=== PATIENT | male | born 1950 | race Caucasian/White ===

== ENCOUNTER → 2019-03-20 12:47 | Outpatient (CLI) | payer MEDICARE, OTHER, SELFPAY ==
--- NOTE | 2019-03-20 | DI.MRI.S_ITS ---
PROCEDURE: MR LUMBAR SPINE WO CON INDICATIONS: Low back pain TECHNIQUE: Noncontrast sagittal T1 spin echo and T2 fast echo, sagittal STIR, axial T1 and T2 fast spin echo through the lumbar spine. In cases with scoliosis, additional coronal T2 fast spin echo may be performed. COMPARISON: [facility], CR, XR LUMBAR SPINE 2 OR 3 VIEWS, 03/05/2019, 9:36. [facility], MR, L-SPINE WITHOUT CONTRAST, 03/15/2014, 8:11. FINDINGS: Image quality: Excellent. Alignment and Curvature: There is trace retrolisthesis of L1 on L2, L2 and L3, L3 on L4, L4 on L5. Bone Marrow: Marrow is of normal overall signal. Mild reactive endplate changes are present at L3-4, minimal throughout the remainder of the lumbar spine. No acute vertebral body compression fractures. Spinal Cord: Conus medullaris terminates at the L1-L2 level. Visualized cord demonstrates normal signal and size. Paraspinous Soft Tissues: No paravertebral masses. Discs: Moderate to severe multilevel degenerative disc space narrowing is present most severe from L2-3 through L4-5. L1-L2: Mild disc bulge with minimal to mild spinal stenosis. Minimal left foraminal narrowing with facet and ligamentum flavum hypertrophy. Minimal interval progression. L2-L3: Mild disc bulge with mild to moderate spinal stenosis, slightly progressive. There is interval appearance of a left-sided posterior paracentral protrusion. It is best seen on sagittal images. It is located along the caudal aspect of the disc space projecting approximately 12 mm. There is compromise of the exiting nerve roots. There is moderate bilateral foraminal narrowing slightly progressive on the left compared to prior exam. Facet and ligamentum flavum hypertrophy are present. Minimal epidural lipomatosis. L3-L4: Mild disc bulge with moderate spinal stenosis, slightly progressive compared to prior exam. Epidural lipomatosis is present. Moderate bilateral foraminal narrowing is present, progressive compared to prior exam. Superimposed protrusion/extrusion is noted in the right posterior paracentral location. It is noted previous extrusion was also identified at this level although is more caudal location. L4-L5: Mild disc bulge with moderate spinal stenosis and epidural lipomatosis. Mild to moderate left and severe right foraminal narrowing with facet hypertrophy. Minimal interval progression. L5-S1: Mild disc bulge without spinal stenosis. No foraminal narrowing. Mild facet hypertrophy. IMPRESSION: 1. Multilevel degenerative changes degenerative interval progression as noted above. 2. Interval development of areas of protrusion/extrusion notable at L2-3 and L3-4 as detailed above. Dictated by: Katrina Braun M.D. on 03/20/2019 at 15:32 Approved by: Katrina Braun M.D. on 03/20/2019 at 16:00
== END ==
PROVIDERS: Family Provider Internal Medicine; PCP Internal Medicine; Visit Provider Physical Medicine & Rehabilitation Pain Medicine
DX: M47.816 Spondylosis without myelopathy or radiculopathy, lumbar region (principal); M47.817 Spondylosis without myelopathy or radiculopathy, lumbosacral region; M51.26 Other intervertebral disc displacement, lumbar region
CPT/HCPCS: 72148

== ENCOUNTER 2019-07-04 06:00 | Day surgery (SDC) | payer MEDICARE, OTHER, SELFPAY ==
[2019-06-15 08:44] VITALS: BMI 30.4
[2019-07-04] VITALS (17 sets, daily range): BP systolic 131–169; BP diastolic 70–94; PULSE 81–103; RESP 9–16; TEMP 36.6–37.6; O2SAT 91–97; BMI 32.1
--- NOTE | 2019-07-04 | DI.RAD.S_ITS ---
PROCEDURE: XR LUMBAR SPINE 2-3V INDICATIONS: L2-4 TLIF TECHNIQUE: 2 views of the lumbar spine were acquired. COMPARISON: None. FINDINGS: Bones: 5 [id number] vertebrae are present. There is normal bony alignment established after placement of transverse pedicle screws and vertical fixation rods bilaterally from L2-L4, with interbody disc cage prosthesis devices at the L2-3 and L3-4. No vertebral body compression fractures. No suspicious bony lesions. Soft tissues: Overlying bowel gas pattern is normal. No suspicious soft tissue calcifications. IMPRESSION: Normal alignment established by posterior fusion procedure with interbody disc cage prosthesis devices at the 2 intervening levels, from L2-L4. Dictated by: Isidro Enamorado M.D. on 07/04/2019 at 12:14 Approved by: Isidro Enamorado M.D. on 07/04/2019 at 12:30
[2019-07-04] MEDS: ACETAMINOPHEN 325 MG TABLET 975 MG PO (07:41)
[2019-07-04] MEDS: CELECOXIB 200 MG CAPSULE 400 MG PO (07:41)
[2019-07-04] MEDS: LACTATED RINGERS 1,000 ML 42 ML IV ×2 (07:41→09:29)
[2019-07-04] MEDS: GABAPENTIN 300 MG CAPSULE PO (07:42)
--- NOTE | 2019-07-04 07:43 | PM.PREOP ---
Pre-operative Note Interval Note History & Physical reviewed/Exam performed by Physician: Yes Changes to H&P: No
[2019-07-04] MEDS: CEFAZOLIN 2 GM/100 ML FROZ.PIGGY IV ×3 (07:46→23:38)
--- NOTE | 2019-07-04 08:23 | SUR.OPER ---
Prone on spine table, head in foam head support, padded chest and pelvic supports, gel pad at knees, lower legs supported by pillows; nipples, genitalia and toes free of pressure, arms secured on foam padded arm boards at <90 degrees abduction. Tape over blanket at thigh secured to table.
[2019-07-04] MEDS: BUPIVACAINE 0.25% W/ EPI 30 ML VIAL INJ (08:46)
[2019-07-04] MEDS: BUPIVACAINE LIPOSOME 266 MG/20 ML VIAL INJ (08:46)
--- NOTE | 2019-07-04 09:18 | CM.IDA ---
Discharge Planning/Care Management CM Discharge Assessment Start: 07/04/19 09:13 Freq: Status: Active Protocol: Document 07/04/19 09:14 MARTÍN (Rec: 07/04/19 09:18 MARTÍN [id number]) Discharge Planning Assessment Assigned Formation Testing Operator VARINDER Miramontes DPOA/Assigned Designee Name Elen Bautista, spouse Contact Information [phone], Advance Directives? Yes Advance Directives on File No History Provided By Patient,Significant Other, Medical Record Prior Living Arrangements House Household Members spouse Type of transporation used prior to Drives own vehicle admit Independent with ADL's Yes Is patient alert and oriented? Yes Comment Pt is off the floor for spinal surgery today w/ Dr Henriquez PCP: Deana Alfonso Payer: [facility]/ [facility] Pt will require further assessment of DC needs once back from his surgery and evaluated by PT for dispo recommendations. Pt plans to return home w/spouse to assist . Following closely for DC assessment and needs. VARINDER Burns Discharge Plan Home Transportation Arrangement Family Additional Comment Pending progress w/therapy team Review Status In Process
--- NOTE | 2019-07-04 11:38 | PM.OP.1 ---
Operative Date/Time/Diagnoses Date of procedure: 07/04/19 Time of procedure: 08:10 Pre-op diagnosis: 1. L2-3, L3-4 spondylolisthesis 2. L2-3, L3-4, L4-5 spinal stenosis 3. L2-3, L3-4, L4-5 spondylosis with radiculopathy Post-op diagnosis: same Procedure & Clinicians Procedure: 1. L2-3, L3-4 Postero-lateral and posterior interbody fusion 2. L2-3, L3-4 interbody cage placement. 3. L2-3, L3-4 decompressive laminectomy with bilateral facetecomies 4. L2-3, L3-4 Posterior segmental instrumentation 5. L4-5 hemilaminectomy 6. [place] of bone marrow from iliac crest 7. Utilization of microsurgical technique and operating microscope Same procedure as scheduled: Yes Indications: Patient has been having chronic back pain and worsening lumbar radiculopathy. Patient failed multiple conservative management with worsening pain weakness and numbness in her lower extremity. Patient has been having difficulty performing activity of daily living. After discussing risks benefits of treatment options, patient elected proceed with surgery. Surgeon: Hardik Henriquez Electronic Organ Mechanic: Campbell Montague Click Yes if Unassisted: No Anesthesia Type: General Operative Notes Closure Type: primary Specimen(s): none sent Prosthetic devices, grafts, tissues, transplants, or devices: Globus revolve, Rise cages Applied: catheter Estimated Blood Loss (mL): 100 Blood products transfused: none Procedure in detail: Patient was seen in the preoperative area. Risks and benefits of the surgery was discussed with the patient. Informed consent was obtained from the patient and placed in the chart. Surgical site was marked. Patient was taken to the operative room. General anesthesia was administered. Prophylactic antibiotic was given to the patient less than 30 min before the incision was made. Patient was placed into a prone position on the Ramo table. Patient's back was then prepped and draped in the sterile fashion. Time-out was performed at this time. Using AP and lateral C-arm imaging the interval between L2-3, L3-4 was identified and marked on patient's back. A 2 inch incision 2 in from midline was made on the left side first. The fascia was incised in line with skin incision. Globus MARS retractors was placed inside the incision and docked onto the L2 and L3 lamina. Using microsurgical technique and operating microscope, a L2 and L3 laminectomy and L2-3, L3-4 facetectomy was performed using a Kerrison rongeur. Patient was found have severe central and neural foramen stenosis due to spondylosis and disc herniation. The stenosis was fully decompressed after the laminectomy and diskectomy and facetectomy was completed. The disc space at L2-3, L3-4 was identified. And a total diskectomy was performed at L2-3, L3-4 level. The endplates were decorticated using a rasp and shaver. The total diskectomy and decortication was performed at L2-3, L3-4 level in order to to accomplish a L2-3, L3-4 fusion. The local bone from the laminectomy and facetectomy was saved for local bone grafting. After the total diskectomy and decortication was completed, Bio4 bone graft material was combined with local bone that was harvested earlier. At this time, a separate skin is incision was made over the iliac crest. A Jamshidi needle was inserted into the iliac crest through a separate skin incision. 5 cc of bone marrow aspiration was obtained through the separate skin incision using a Jamshidi needle from the iliac crest. The bone marrow aspiration was combined with local bone and the Bio4 bone grafting material. The bone grafting material was placed into the L2-3, L3-4 interbody space along with two cages, one expandable cage at each level. The cages were expanded to their maximum height using the torque limiting screwdriver. The mars retractor was then redirected over the L4 lamina. An L4-5 hemilaminectomy was performed using a Kerrison rongeur to decompress the central canal in the lateral recess. Appropriate decompression was accomplished. At this time a mirror image incision was made on the right side. The fascia was incised in line with the skin incision. Globus MARS retractor was inserted and docked onto the L2-3, L3-4 posterolateral gutter. Using the power drill, posterior-lateral decortication was performed at L2-3, L3-4 level until bleeding cortical bone was identified. The remaining bone grafting material was placed into the L2-3, L3-4 posterior lateral gutter he order to accomplish posterolateral fusion at the L2-3, L3-4 levels. Using the double C-arm technique, pedicle screws were placed into the L2, L3, L4 pedicles bilaterally. This was done by placing the Jamshidi needle into the pedicles, then placing the guidewires over the Jamshidi needle, and finally placing the cannulated screws over the guidewires bilaterally. After the pedicle screws were placed, 2 titanium rods was locked into the heads of the pedicle screws using locking caps and torque limiting screwdriver. Total 6 pedicles screws were placed. After all the hardware was placed, and confirmed with AP and lateral C-arm imaging, the wound was then irrigated with sterile normal saline and packed with Ray-Cristy gauze for 3 min to accomplish hemostasis. After the gauze was removed the deep fascia was closed with #1 Vicryl suture. The subcutaneous layer was closed with 2-0 Vicryl. The skin was closed with skin seymour. Patient tolerated the procedure well. There were no complications. Complications: none Post-operative Condition: stable Disposition: PACU Plan for aftercare: Admit to inpatient hospital
[2019-07-04] MEDS: HYDROMORPHONE 2 MG INJ IV ×8 (11:59→12:49)
--- NOTE | 2019-07-04 12:54 | SUR.PHASEI ---
Patient has been very, very restless. Took off gown, scd's, BP cuff, etc. unable to re-direct patient.
--- NOTE | 2019-07-04 13:00 | SUR.PHASEI ---
Patient states pain is tolerable. Sleeping on side.
[2019-07-04] MEDS: SODIUM CHLORIDE 0.9% 1,000 ML 100 ML IV (16:00)
[2019-07-04] MEDS: OXYCODONE IR 5 MG TABLET 10 MG PO ×3 (16:01→22:43)
--- NOTE | 2019-07-04 16:01 | PT.IIE ---
Current Diagnoses Spondylolisthesis, lumbar region (07/04/19) Other spondylosis with radiculopathy, lumbosacral region (07/04/19) Spinal stenosis, lumbar region without neurogenic claudication (07/04/19) Surgery Performed Operation Date: 07/04/19 07:45 Actual Procedures p L4-5 hemilaminectomy, L2-3, L3-4 TLIF w/ posterior instrumentation - Hardik Henriquez MD Surgical History (Last Updated 06/15/19 @ 09:12 by Sunni Lewis RN) No history of previous surgery (Acute) Medical History (Last Updated 06/15/19 @ 09:12 by Sunni Lewis RN) Enlarged prostate (Acute) Gout (Acute) HTN (hypertension) (Acute) Osteoarthritis (Acute) Pre-diabetes (Acute) Sciatica (Acute) Physical Therapy Inpatient Evaluation/Re-Eval M1 PT/OT-IP Prior Functional Status Start: 07/04/19 16:43 Freq: NEEDED Status: Active Protocol: Document 07/04/19 16:01 AB (Rec: 07/04/19 16:54 AB [id number]) Medical Review Prior Functional Status Medical History Reviewed Yes Communication able to make needs known Mobility and Gait pt stated that he is independent with all mobilities and ambulation without AD Social History Household Members spouse Living Arrangements House Number of Floors (Floors) One Floor Number of Stairs To Enter/Railing? 3 steps to enter with L rail ascending Home Environment Standard Height Toilet,Walk in Shower,Built-In Shower Seat Home Equipment Raised Toilet Seat Without Armrests,Hand Held Shower,Grab Bars In Shower Additional Social History Comment has an adjustable bed M2 PT-IP Current Condition Start: 07/04/19 16:43 Freq: NEEDED Status: Active Protocol: Document 07/04/19 16:01 AB (Rec: 07/04/19 16:54 AB [id number]) Physical Therapy Current Condition Current Condition Evaluation Date 07/04/19 Treatment Diagnosis s/p L2-4 posterior fusion/lami ; L4-5 hemilami; difficulty in walking Onset Date 07/04/2019 Precautions Lumbar Precautions Log Roll,No Twisting,Limit Bending,Lifting Restriction of 10 lbs,Gait Belt above Incisional Area M3 PT-IP Subjective Start: 07/04/19 16:43 Freq: NEEDED Status: Active Protocol: Document 07/04/19 16:01 AB (Rec: 07/04/19 16:54 AB [id number]) Subjective Physical Therapy Visit Type Type Initial Evaluation Visit Start Time 16:01 Visit Stop Time 16:36 Total Visit Minutes 35 Number of [employer] Visits 0 Physical Therapy Visit Comments Patient Comments pt agreeable to do PT Therapy Pain Assessment Pain When Pain Assessed At Rest Pain Present Pain Present Pain Reported Location Medial Back Intensity 5 Scale Used Numeric (1 - 10) Pain Management Techniques Re-positioning,Timing of Activity with Medications M4 PT-IP Mobility and Gait Start: 07/04/19 16:43 Freq: NEEDED Status: Active Protocol: Document 07/04/19 16:01 AB (Rec: 07/04/19 16:54 AB [id number]) PT-Bed Mobility Assessment Rolling Type of Rolling Log Rolling Level of Assist Standby Assistance Supine to Sit Supine to Sit Standby Assistance Sit to Supine Sit to Supine Standby Assistance PT-Transfer Assessment Sit to and From Stand Sit to and from Stand Contact Guard Assistance,1 Person Assistance,Use of Upper Extremities Equipment Transfer Assistive Device Gait Belt,Front Wheeled Walker Orthotic/Prosthetic Devices or Brace: No Transfers Transfer Destination Toilet Transfer Technique ambulated using FWW Transfer Ability Level of Assist Standby Assistance,Contact Guard Assistance,1 Person Assistance,Use of Upper Extremities Comments Mobility Comments completed bed mobility supine to sit log roll SBA. pt was able to sit on EOB SBA. Pt requested to use the toilet. completed sit to stand CGA and ambulated to the toilet using FWW CGA. pt was able to maintain standing SBA using FWW for support while toileting. pt ambulated to the chair using FWW SBA. able to put underwear on and completed sit to stand SBA to CGA and was able to manage underwear. pt ambulated in room. requested to just go back to bed afterwards. completed sit to supine SBA and cues. positioned pt on the bed. call light and table placed within reach. Gait Assessment Gait Gait Assistance Required: Standby Assistance,Contact Guard Assist Distance (Feet) 30 Able to Maintain Weight Bearing Status Yes During Gait Assistive Devices Assistive Device Gait Belt,Front Wheeled Walker Orthotic/Prosthetic Devices or Brace: No Gait Deviations General Gait Pattern Antalgic,Decreased Stride Length,Decreased Feet Clearance Factors Limiting Gait Function Factors Limiting Gait Function Decreased Strength,Limited Range of Motion,Pain,Poor Balance,Poor Safety Awareness PT-Balance Assessment Sitting Balance and Reactions Static Sitting Balance Ability Good Dynamic Sitting Balance Ability Good Standing Balance and Reactions Static Standing Balance Ability Fair Dynamic Standing Balance Ability Fair Device Used FWW M5 PT-IP Objective Assessments Start: 07/04/19 16:43 Freq: NEEDED Status: Active Protocol: Document 07/04/19 16:01 AB (Rec: 07/04/19 16:54 [id number]) Orientation Orientation/Cognition Level of Alertness Alert Orientation Name,Age,Birthday,Month,Date, Year,Day of Week,Place, Situation Language Function Ability No Deficits Noted Safety Awareness Understands Safety Issues Memory Description No Deficits Noted Gross Range of Motion Lower Extremity ROM Assessment Within Functional Limits Strength Lower Extremity Strength Assessment Within Functional Limits Coordination Assessment Gross Coordination Gross Coordination WNL Sensation Assessment Sensation Gross Sensation WNL Muscle Tone Muscle Tone WNL Yes M6 PT-IP Treatment Start: 07/04/19 16:43 Freq: NEEDED Status: Active Protocol: Document 07/04/19 16:01 AB (Rec: 07/04/19 16:54 [id number]) Physical Therapy Treatment Education Education Provided Precautions,Weight Bearing Status,Post-Op Packet,Safety M7 PT-IP Assessment and Plan Start: 07/04/19 16:43 Freq: NEEDED Status: Active Protocol: Document 07/04/19 16:01 AB (Rec: 07/04/19 16:54 [id number]) PT Summary Assessment and Plan Potential Rehabilitation Potential Good Status of Condition at Evaluation Stable Summary Impairments Pain,ROM,Strength,Balance, Coordination,Sensation,Tone, Cognition,Bed Mobility, Transfers,Gait,Activity Tolerance Assessment Summary pt requiring SBA to CGA with mobility and plans to go home with spouse to assist him. will conduct caregiver training when appropriate and also complete stair climbing training prior to d/c. Goals Bed Mobility Goal Independent Transfer Goal Independent,Front Wheeled Walker Gait Goal Independent,Front Wheel Walker Gait Distance FWW Other Goals up/down 3 steps L rail ascending SBA Days to Meet Goals 5 Frequency of Treatment Frequency Of Treatment Twice a Day Treatment Plan Physical Therapy Treatment Plan Bed Mobility Training,Transfer Training,Gait Training, Therapeutic Exercise,Balance Retraining,Post Op Education, Discharge Planning,Hot or Cold Pack,Neuromuscular Re-ed, Coordination Retraining,Manual Therapy Other Recommendations and Next Treatment ambulation, stair climbing Focus Recommendations To Nursing Amount of Assist Needed 1 Person Assist Discharge Recommendations PT Discharge Recommendations Home with Assistance Transportation Needs at Discharge Private Vehicle
[2019-07-04] MEDS: SENNOSIDES 8.6 MG TABLET 17.2 MG PO (20:18)
[2019-07-04] MEDS: DOCUSATE 100 MG CAPSULE PO (20:19)
[2019-07-04] MEDS: TAMSULOSIN 0.4 MG CAPSULE PO (20:19)
[2019-07-04] MEDS: METFORMIN HCL 500 MG TABLET 250 MG PO (20:19)
[2019-07-04] MEDS: FINASTERIDE 5 MG TABLET PO (20:19)
[2019-07-05] VITALS (7 sets, daily range): BP systolic 151–166; BP diastolic 75–85; PULSE 80–82; RESP 16–17; TEMP 37.2–37.9; O2SAT 94–99
--- NOTE | 2019-07-05 00:47 | PC.NURSE ---
Addendum entered by Phylicia Kulkarni R.N. 07/05/19 06:07: Recheck on temp was 100.1. Currently states pain is tolerable at 4/10 and declines offer of pain meds. Addendum entered by Phylicia Kulkarni R.N. 07/05/19 04:20: Temperature 100.2; medicated with Tylenol. Instructed on importance of using I.S. and CDB to help lower temp and prevent pneumonia. Addendum entered by Phylicia Kulkarni R.N. 07/05/19 02:31: Medicated with Oxycodone for complaint of 7/10 aching back pain. Agreeable to trying ice to area as well. Original Note: Patient is alert and oriented and very fussy about how care is provided. Up at start of shift and ambulated several loops around [facility] nursing stations with walker and SBA. Breath sounds CTA with RA sat of 99%. HRR. BP has been consistently elevated and currently is 166/85. Denies nausea. BT present and states he is passing flatus. States he is having some post catheter dysuria but states it is improving. Voided into toilet; reminded to use urinal for accurate I&O. Is able to turn himself in bed. Dressing to back is intact with shadow drainage noted and outlined. Pre diabetic but refusing to have CBG's done. Wearing bilateral calf SCD's. CMS is intact. Noted to have scabbed scratches on lateral left LE. States pain is 6/10 but tolerable and declines offer of pain med and/or ice pack. Fall risk score is high and bed alarm is activated. rooming in.
[2019-07-05] MEDS: OXYCODONE IR 5 MG TABLET 10 MG PO ×2 (02:18→08:32)
[2019-07-05] MEDS: ACETAMINOPHEN 325 MG TABLET 650 MG PO (04:18)
[2019-07-05 07:05] LABS: Hematocrit 35.9 % (41-53); Hemoglobin 12.5 g/dL (13.5-17.5)
--- NOTE | 2019-07-05 07:45 | PM.PNPO.1 ---
Subjective Subjective Date Patient Seen: 07/05/19 Time Patient Seen: 07:45 Interval history: Postop day 1 status post L 2- 4 TLIF, and L4-L5 hemilaminectomy with Dr. Henriquez. Patient's pain was well-controlled last night with oxycodone and Tylenol. His catheter was removed after surgery. He is voiding and eating well. He has not been up with PT yet. Exam Vital Signs (past 8 hours): - 07/05/19 00:00 07/05/19 04:00 07/05/19 04:18 Temperature 99.0 F 100.2 F H 100.2 F H Pulse Rate 82 80 Respiratory Rate 17 16 Blood Pressure 166/85 H 151/75 H Pulse Oximetry 99 97 07/05/19 05:18 07/05/19 05:30 07/05/19 07:00 Temperature 100.1 F H 100.1 F H 99.7 F H Pulse Rate Respiratory Rate Blood Pressure Pulse Oximetry Oxygen Delivery Method Room Air Oxygen Flow Rate 0 Narrative Exam Narrative: Patient lying in bed in no acute distress. Alert and orient x3. Calves soft, compressible, and nontender bilaterally. Pulses are symmetrical. He is able to actively dorsiflex and plantar flex. Dressing CDI. Cover stable be applied prior to discharge. No complaints this morning. He is aware of his precautions. Objective Labs Result Diagrams: 07/05/19 06:35 Labs: Laboratory Results - last 24 hr 07/05/19 06:35 Hgb 12.5 L Hct 35.9 L Assessment & Plan Post-op Postoperative Procedures: Procedures Operation Date: 07/04/19 07:45 Actual Procedures Side Surgeon p L4-5 hemilaminectomy, L2-3, L3-4 TLIF w/ posterior instrumentation Hardik Henriquez MD patient will mobilize with physical therapy today. No excessive bending, lifting, or twisting. Continue current pain control. The patient is mobilizing safely, voiding, and adequate pain control he will go home today. Quality VTE Deep Vein Thrombosis/Pulmonary Embolism Present on Admission: No
[2019-07-05] MEDS: METFORMIN HCL 500 MG TABLET 250 MG PO (08:33)
[2019-07-05] MEDS: allopurinoL 100 MG TABLET PO (08:34)
[2019-07-05] MEDS: DOCUSATE 100 MG CAPSULE PO (08:34)
[2019-07-05] MEDS: AMLODIPINE 5 MG TABLET PO (08:34)
[2019-07-05] MEDS: TELMISARTAN 20 MG TABLET PO (08:35)
[2019-07-05] MEDS: hydroCHLOROthiazide 12.5 MG CAPSULE PO (08:41)
--- NOTE | 2019-07-05 09:25 | OT.IP.EVAL ---
Current Diagnoses Spondylolisthesis, lumbar region (07/04/19) Other spondylosis with radiculopathy, lumbosacral region (07/04/19) Spinal stenosis, lumbar region without neurogenic claudication (07/04/19) Surgery Performed Operation Date: 07/04/19 07:45 Actual Procedures p L4-5 hemilaminectomy, L2-3, L3-4 TLIF w/ posterior instrumentation - Hardik Henriquez MD Past Medical History (Last Updated 06/15/19 @ 09:12 by Sunni Lewis RN) Enlarged prostate (Acute) Gout (Acute) HTN (hypertension) (Acute) Osteoarthritis (Acute) Pre-diabetes (Acute) Sciatica (Acute) Surgical History (Last Updated 06/15/19 @ 09:12 by Sunni Lewis RN) No history of previous surgery (Acute) Occupational Therapy Inpatient Evaluation/Re-Eval M1 PT/OT-IP Prior Functional Status Start: 07/04/19 16:43 Freq: NEEDED Status: Active Protocol: Document 07/05/19 09:25 PJM (Rec: 07/05/19 18:04 PJM [id number]) Medical Review Prior Functional Status Medical History Reviewed Yes Diet/Fluid Consistency Regular Communication WNL Mobility and Gait Pt states that he is independent ambulation without AD. Activities of Daily Living and IADL's Pt states he was independent with all self care without a device. does all IADLS, waiter/waitress formal. Both drive. Social History Household Members spouse Living Arrangements House Number of Floors (Floors) One Floor Number of Stairs To Enter/Railing? 3 steps to enter with L rail ascending Home Environment Standard Height Toilet,Walk in Shower,Built-In Shower Seat Home Equipment Raised Toilet Seat Without Armrests,Hand Held Shower,Grab Bars In Shower Employment Status Retired Additional Social History Comment Pt has an adjustable bed M2 OT-IP Current Condition Start: 07/05/19 17:53 Freq: Status: Active Protocol: Document 07/05/19 09:25 PJM (Rec: 07/05/19 18:04 PJM [id number]) Occupational Therapy Current Condition Current Condition Evaluation Date 07/05/19 Treatment Diagnosis decreased self care, mobility s/p L2-4 posterior fusion, L4- 5 hemilami Diagnosis Onset Date 01/29/20 Post Operative Precautions Lumbar Precautions Log Roll,No Twisting,Limit Bending,Lifting Restriction of 10 lbs,Gait Belt above Incisional Area M3 OT- IP Subjective and Pain Start: 07/05/19 17:53 Freq: Status: Active Protocol: Document 07/05/19 09:25 PJM (Rec: 07/05/19 18:04 PJ [id number]) OT- Subjective Occupational Therapy Visit Type Type Initial Evaluation Visit Start Time 09:00 Visit Stop Time 09:25 Total Visit Minutes 25 Notes Pt's here for education this session. Occupational Therapy Visit Comments Patient Comments I am ready to go home. 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 OT Pain Assessment Pain When Pain Assessed After Treatment Pain Present Pain Present Pain Reported Location Medial Back Intensity 4 Scale Used Numeric (1 - 10) Description Aching,Acute M4 OT- IP ADL's Start: 07/05/19 17:53 Freq: Status: Active Protocol: Document 07/05/19 09:25 PJM (Rec: 07/05/19 18:04 PJ [id number]) OT [id number] General Evaluation Self-Feeding Ability Independent OT ADL-Grooming General Evaluation Grooming Ability Independent Areas Needing Assistance Face Washing Comments OT Grooming Comments standing at sink with FWW OT ADL-Oral Care Comments Oral Care Comments pt declined OT ADL-Dressing General Eval Upper Body Dressing Ability Independent Lower Body Dressing Ability Minimal Assistance Areas Needing Assistance Pull-Over Shirt,Underpants/ Brief,Pants/Shorts,Socks Assistive Devices Dressing Assistive Devices Program Management Specialist Comments OT Dressing Comments Pt prefers to have assist with socks PRN. Pt will obtain can crimper. OT ADL-Toileting General Evaluation Toileting Ability Independent OT ADL-Bathing Comments OT Bathing Comments pt declines to shower here, provided education re: body mechanics, has long bath brush M5 OT- IP IADL's Start: 07/05/19 17:53 Freq: Status: Active Protocol: Document 07/05/19 09:25 PJM (Rec: 07/05/19 18:04 PJ [id number]) OT-Instrumental Activities of Daily Living Deficits IADL Deficits Identified Deficits Home Safety Awareness Awareness of Need for Assistance at Home Good Awareness Home Safety Comments does all IADLS at home. Medication Management Medication Management No Deficits Identified Money Management Money Management No Deficits Identified Meal Preparation Meal Preparation Caregiver Provides Assist Manager Care Manager Care Caregiver Provides Assist Driving Driving Caregiver Provides Assist Driving Comments until pt able M6 OT- IP Functional Cognition Start: 07/05/19 17:53 Freq: Status: Active Protocol: Document 07/05/19 09:25 PJM (Rec: 07/05/19 18:04 PJM [id number]) Cognitive Factors Limiting Selfcare Function Cognitive Ability Level of Alertness Alert Patient Orientation Name,Age,Birthday,Month,Date, Year,Day of Week,Place, Situation Attention Span Ability Capable of Focused Attention, Capable of Sustained Attention Ability to Follow Commands Able to Follow Multi-Step Commands Memory Description No Deficits Noted Safety Awareness No Deficits Noted Cognitive Comments Cognitive Assessment Comments Pt/ verbalize and demonstrate understanding of precautions and all education. OT- Vision and Hearing OT- Hearing Assessment OT- Hearing Assessment WFL OT- Vision Assessment Visual Acuity WFL M7 OT- IP Mobility and Balance Start: 07/05/19 17:53 Freq: Status: Active Protocol: Document 07/05/19 09:25 PJM (Rec: 07/05/19 18:04 PJ [id number]) OT-Transfer Assessment Sit to and From Stand Sit to and from Stand Independent Transfers Transfer Ability Independent Technique Transfer Destination Chair Transfer Technique Stand Step Pivot Devices Transfer Assistive Devices Front Wheeled Walker OT- Gait Assessment Comments Gait Ability Comments see P.T. notes OT- Balance Assessment Sitting Balance and Reactions Static Sitting Balance Ability Good Dynamic Sitting Balance Ability Good Standing Balance and Reactions Static Standing Balance Ability Good Dynamic Standing Balance Ability Good Comments Other Balance Tests/Deviations/Treatment with FWW during LB dressing : M8 OT- IP Objective Assessments Start: 07/05/19 17:53 Freq: Status: Active Protocol: Document 07/05/19 09:25 PJM (Rec: 07/05/19 18:04 PJ [id number]) OT Gross Range of Motion Upper Extremity Range of Motion Assessment Within Functional Limits OT Strength Upper Extremity Strength Assessment Within Functional Limits OT- Coordination Assessment Comments Coordination Comments BUE WNL OT-Muscle Tone Assessment Muscle Tone WNL Yes OT Sensation Assessment Comments Summary Comments BUE WNL Edema Edema Absent M9 OT- IP Assessment and Plan Start: 07/05/19 17:53 Freq: Status: Active Protocol: Document 07/05/19 09:25 PJM (Rec: 07/05/19 18:04 PJM [id number]) OT Summary Assessment and Plan Potential Rehabilitation Potential Good Analytic Complexity at Evaluation Low Summary Progress Towards Goals Safe For Discharge Assessment Summary Low complexity OT assessment and all OT education completed with pt/ today. Pt is 68 yr old male s/p L2-4 fusion and L4-5 hemilami. Provided education re: lumbar spine precautions, body mechanics, posture, chair selection, adapted ADL techniques and car transfers. Pt/ verbalize and demonstrate understanding of all education and supportive capable will provide 24 hr assist at d/c. Pt plans to d/c home today. No further OT services needed. Frequency of Treatment Frequency Of Treatment Discharge Discharge Recommendations OT Discharge Recommendations Home with Assistance Transportation Needs at Discharge Private Vehicle
--- NOTE | 2019-07-05 09:29 | PT.IPTN ---
Current Diagnoses Spondylolisthesis, lumbar region (07/04/19) Other spondylosis with radiculopathy, lumbosacral region (07/04/19) Spinal stenosis, lumbar region without neurogenic claudication (07/04/19) Surgery Performed Operation Date: 07/04/19 07:45 Actual Procedures p L4-5 hemilaminectomy, L2-3, L3-4 TLIF w/ posterior instrumentation - Hardik Henriquez MD Physical Therapy Treatment Note M2 PT-IP Current Condition Start: 07/04/19 16:43 Freq: NEEDED Status: Discharge Protocol: Document 07/04/19 16:01 AB (Rec: 07/04/19 16:54 AB [id number]) Physical Therapy Current Condition Current Condition Evaluation Date 07/04/19 Treatment Diagnosis s/p L2-4 posterior fusion/lami ; L4-5 hemilami; difficulty in walking Onset Date 07/04/2019 Precautions Lumbar Precautions Log Roll,No Twisting,Limit Bending,Lifting Restriction of 10 lbs,Gait Belt above Incisional Area M3 PT-IP Subjective Start: 07/04/19 16:43 Freq: NEEDED Status: Discharge Protocol: Document 07/05/19 09:29 AB (Rec: 07/05/19 11:28 AB [email or web address]) Subjective Physical Therapy Visit Type Type Treatment Note Visit Start Time 09:29 Visit Stop Time 09:43 Total Visit Minutes 14 Number of [employer]BER Visits 0 Physical Therapy Visit Comments Patient Comments pt agreeable to do PT Therapy Pain Assessment Pain When Pain Assessed At Rest Pain Present Pain Present Pain Reported Location Medial Back Intensity 3 Scale Used Numeric (1 - 10) Pain Management Techniques Timing of Activity with Medications M4 PT-IP Mobility and Gait Start: 07/04/19 16:43 Freq: NEEDED Status: Discharge Protocol: Document 07/05/19 09:29 AB (Rec: 07/05/19 11:28 AB [id number]) PT-Bed Mobility Assessment Rolling Type of Rolling Log Rolling Level of Assist Standby Assistance Supine to Sit Supine to Sit Standby Assistance Sit to Supine Sit to Supine Standby Assistance PT-Transfer Assessment Sit to and From Stand Sit to and from Stand Standby Assistance Equipment Transfer Assistive Device Gait Belt,Front Wheeled Walker Orthotic/Prosthetic Devices or Brace: No Transfers Transfer Destination Bed Transfer Technique ambulated Transfer Ability Level of Assist Standby Assistance Gait Assessment Gait Gait Assistance Required: Standby Assistance Distance (Feet) 300 Able to Maintain Weight Bearing Status Yes During Gait Assistive Devices Assistive Device Gait Belt,Front Wheeled Walker Orthotic/Prosthetic Devices or Brace: No Factors Limiting Gait Function Factors Limiting Gait Function Limited Range of Motion,Pain, Poor Balance,Poor Safety Awareness Stair Climbing Assessment Evaluation Level of Assist On Stairs Standby Assistance Devices Stair Climbing Assistive Devices Left Railing Technique/Endurance Stair Climbing Direction Ascend and Descend Stair Climbing Technique Step Over Step Number of Steps Climbed 3 Stair Climbing Set # Repetitions (reps) 2 M5 PT-IP Objective Assessments Start: 07/04/19 16:43 Freq: NEEDED Status: Discharge Protocol: Document 07/04/19 16:01 AB (Rec: 07/04/19 16:54 AB [id number]) Orientation Orientation/Cognition Level of Alertness Alert Orientation Name,Age,Birthday,Month,Date, Year,Day of Week,Place, Situation Language Function Ability No Deficits Noted Safety Awareness Understands Safety Issues Memory Description No Deficits Noted Gross Range of Motion Lower Extremity ROM Assessment Within Functional Limits Strength Lower Extremity Strength Assessment Within Functional Limits Coordination Assessment Gross Coordination Gross Coordination WNL Sensation Assessment Sensation Gross Sensation WNL Muscle Tone Muscle Tone WNL Yes M6 PT-IP Treatment Start: 07/04/19 16:43 Freq: NEEDED Status: Discharge Protocol: Document 07/05/19 09:29 AB (Rec: 07/05/19 11:28 AB [id number]) Physical Therapy Treatment Education Education Provided Precautions,Safety M7 PT-IP Assessment and Plan Start: 07/04/19 16:43 Freq: NEEDED Status: Discharge Protocol: Document 07/05/19 09:29 AB (Rec: 07/05/19 11:28 AB [email or web address]) PT Summary Assessment and Plan Potential Rehabilitation Potential Excellent Summary Impairments Pain,ROM,Strength,Balance,Bed Mobility,Transfers,Gait, Activity Tolerance Progress Towards Goals Progressing Toward Goals Assessment Summary pt is doing well with mobility and requires SBA using FWW. pt plans to go home today. spouse will assist pt if needed. pt may go home when medically stable. Goals Bed Mobility Goal Independent Transfer Goal Independent,Front Wheeled Walker Gait Goal Independent,Front Wheel Walker Gait Distance FWW Other Goals up/down 3 steps L rail ascending SBA Days to Meet Goals 5 Frequency of Treatment Frequency Of Treatment Twice a Day Treatment Plan Physical Therapy Treatment Plan Bed Mobility Training,Transfer Training,Gait Training, Therapeutic Exercise,Balance Retraining,Post Op Education, Discharge Planning,Hot or Cold Pack,Neuromuscular Re-ed, Coordination Retraining,Manual Therapy Other Recommendations and Next Treatment ambulation, stair climbing Focus Recommendations To Nursing Amount of Assist Needed 1 Person Assist Discharge Recommendations PT Discharge Recommendations Home with Assistance Transportation Needs at Discharge Private Vehicle
--- NOTE | 2019-07-05 10:22 | PC.NURSE ---
Day shift: Pt left unit at approx 1015. Paperwork signed and all questions answered. Dressing changed ant it is CDI. Pt has all personal belongings and scrips. Taken to car driven by his spouse. GAYATRI Diaz took him in .
== END 2019-07-05 10:23 | disposition home or self-care (01) ==
LOC: AC 07-05 08:36 → OR 07-05 10:28
PROVIDERS: Family Provider Internal Medicine; PCP Internal Medicine; Visit Provider Orthopaedic Surgery Orthopaedic Surgery of the Spine
PROC: (CPT 22633; principal; 2019-07-04 07:45)
DX: M43.16 Spondylolisthesis, lumbar region (principal); M48.061 Spinal stenosis, lumbar region without neurogenic claudication; M47.27 Other spondylosis with radiculopathy, lumbosacral region
CPT/HCPCS: 22633; 20939; 63048; 22842; 22853 ×2; 22634; 63030; 63047; 36415; 72100; 76000; 85014; 85018; 97116; 97161; 97165; 97535; C1776; C9290; J0330; J0690; J1100; J1170; J2405; J2704; J3010

== ENCOUNTER → 2020-10-03 12:59 | Outpatient (CLI) | payer MEDICARE, OTHER, SELFPAY ==
[2019-07-04 13:36] VITALS: BMI 32.1
--- NOTE | 2020-10-03 13:01 | DI.CT.S_ITS ---
PROCEDURE: CT LUMBAR SPINE WO CON INDICATIONS: Spinal stenosis, lumbar region with neurogenic cla TECHNIQUE: Noncontrast 3 mm thick sections acquired from the T12 level to the sacrum. Sagittal and coronal reformats were constructed. For radiation dose reduction, the following was used: automated exposure control. COMPARISON: [facility], MR, MR LUMBAR SPINE WO CON, 03/20/2019, 13:02. FINDINGS: Image quality: Prominent artifact is present from surgical hardware most notable at L2-3, L3-4. Bones: There is posterior fusion is present from L2 through L4. Laminectomy changes are noted at L3 and L4. Prosthetic discs are present in L2-3, L3-4. There is trace retrolithesis of L1 on L2, L2 on L3. No fractures or dislocations. No suspicious osseous lesions. Disc bulges are present at L1-2, L4-5, L5-S1. Moderate spinal stenosis at L4-5, unchanged. Previous stenosis at L2-3, L3-4 has improved. Unchanged severe right right and mild to moderate left foraminal narrowing at L4-5, moderate left and [id number] right foraminal narrowing L3-4, slightly improved. Moderate right and [id number] left foraminal narrowing at L2-3, slightly improved. Multilevel ligamentum flavum hypertrophy and epidural lipomatosis are present. Soft tissues: No retroperitoneal masses or hematomas. Visualized aorta is normal in caliber. IMPRESSION: 1. Postsurgical changes as above. 2. Improved appearance of previous spinal stenosis at L2-3, L3-4 with unchanged stenosis at L4-5. 3. Multilevel foraminal narrowing remaining most severe at L4-5. Dictated by: Katrina Braun M.D. on 10/03/2020 at 12:48 Approved by: Katrina Braun M.D. on 10/03/2020 at 13:23
== END ==
PROVIDERS: Family Provider Internal Medicine; PCP Internal Medicine; Referring Provider Orthopaedic Surgery Orthopaedic Surgery of the Spine; Visit Provider Orthopaedic Surgery Orthopaedic Surgery of the Spine
DX: M48.062 Spinal stenosis, lumbar region with neurogenic claudication (principal); Z98.1 Arthrodesis status
CPT/HCPCS: 72131

== ENCOUNTER → 2021-01-13 08:51 | Outpatient (CLI) | payer MEDICARE, OTHER, SELFPAY ==
[2019-07-04 13:36] VITALS: BMI 32.1
--- NOTE | 2021-01-13 08:54 | DI.MRI.S_ITS ---
PROCEDURE: MR KNEE RT WO CON INDICATIONS: Pain in right knee TECHNIQUE: Noncontrast sagittal PD fast spin echo and T2 fast spin echo with fat saturation, sagittal 3-D FLASH with fat saturation; coronal T1 spin echo and PD fast spin echo with fat saturation, and axial PD fast spin echo with fat saturation through the knee. COMPARISON: [facility], CR, XR KNEE 4+ VIEWS RIGHT, 11/27/2020, 8:33. FINDINGS: Image quality: Excellent. Menisci: There is mild blunting along the free edge in the anterior horn of the lateral meniscus compatible with mild radial tearing. Mild degenerative signal is also present within the medial and lateral menisci without definite extension to an articular surface. The meniscal root ligaments appear intact. Cruciate ligaments: The anterior and posterior cruciate ligaments appear intact. Medial structures: The medial collateral ligament appears attenuated proximally with periligamentous edema consistent with a likely grade 1 sprain. The semimembranosus tendon insertions and meniscocapsular junction appear intact. Visualized portions of the pes anserinus tendons appear intact without associated bursal fluid collections. Lateral structures: The lateral collateral ligament, long and short heads of the biceps femoris tendon appear intact. The popliteus tendon appears intact. Iliotibial band appears normal. Anterior structures: The quadriceps and patellar tendons appear intact, with mild tendinopathy in the proximal patellar tendon. Patellar alignment is normal. No femoral trochlear dysplasia or ventral trochlear prominence. There is mild indistinct edema in the infrapatellar fat pad. Minimal fluid also present in the infrapatellar bursa. There is mild prepatellar edema without a discrete bursal fluid collection. Bones and cartilage: No bone marrow contusions or fractures. There is moderate cartilage thinning along the medial patellar facet with superficial chondral fraying. As well as suspected fissuring along the median ridge of the patella where there is mild subchondral edema. In the medial compartment, there is also mild cartilage thinning with superficial chondral fraying. Joint space: There is physiologic knee joint fluid. There is minimal fluid in the expected region of a Pereira's cyst. Normal appearing synovial plicae are incidentally noted. IMPRESSION: 1. Mild radial tearing along the free edge of the anterior horn of the lateral meniscus. 2. Grade 1 sprain of the medial collateral ligament. 3. Mild chondral degeneration most prominent within the patellofemoral compartment. Dictated by: John Lindquist M.D. on 01/13/2021 at 13:30 Approved by: John Lindquist M.D. on 01/13/2021 at 13:37
== END ==
PROVIDERS: Family Provider Internal Medicine; PCP Internal Medicine; Referring Provider Orthopaedic Surgery; Visit Provider Orthopaedic Surgery
DX: M25.561 Pain in right knee (principal); S83.281A Other tear of lateral meniscus, current injury, right knee, initial encounter; S83.411A Sprain of medial collateral ligament of right knee, initial encounter
CPT/HCPCS: 73721

== ENCOUNTER → 2021-12-14 11:02 | Outpatient (CLI) | payer MEDICARE, OTHER, SELFPAY ==
[2021-04-14 17:39] VITALS: BMI 32.1
--- NOTE | 2021-12-14 11:05 | DI.CT.S_ITS ---
PROCEDURE: CT HEAD/BRAIN WO CON INDICATIONS: Unspecified fall, sequela TECHNIQUE: Noncontrast 5 mm thick angled axial sections acquired from the foramen magnum to the vertex, with coronal and sagittal reformats. For radiation dose reduction, the following was used: automated exposure control, adjustment of mA and/or kV according to patient size. COMPARISON: None. FINDINGS: Image quality: Excellent. CSF spaces: Basal cisterns are patent. No extra-axial fluid collections. Ventricles are normal in size and shape. Brain: No midline shift. No intracranial masses or hemorrhage. Borja-white matter interface is normal. Skull and face: Calvarium and visualized facial bones are intact, without suspicious lesions. Sinuses: Visualized sinuses and mastoids are clear. IMPRESSION: Normal CT brain without contrast Approved by: Tan Cao M.D. on 12/14/2021 at 13:13
== END ==
PROVIDERS: Family Provider Internal Medicine; PCP Internal Medicine; Referring Provider Internal Medicine; Visit Provider Internal Medicine
DX: G44.89 Other headache syndrome (principal)
CPT/HCPCS: 70450

== ENCOUNTER → 2023-05-25 07:45 | Outpatient (CLI) | payer MEDICARE, OTHER, SELFPAY ==
[2021-04-14 17:39] VITALS: BMI 32.1
--- NOTE | 2023-05-25 | DI.MRI.S_ITS ---
PROCEDURE: MR LUMBAR SPINE WO CON INDICATIONS: spinal stenosis, lumbar region TECHNIQUE: Noncontrast sagittal T1 spin echo and T2 fast echo, sagittal STIR, and T2 fast spin echo through the lumbar spine. In cases with scoliosis, additional coronal T2 fast spin echo may be performed. COMPARISON: [facility], MR, MR LUMBAR SPINE WO CON, 03/20/2019, 13:02. FINDINGS: Image quality: Excellent. Alignment and Curvature: There is trace L1 on L2 retrolisthesis unchanged from the study dated March 20, 2019. There is otherwise normal bony alignment. Patient is status post posterior fixation and discectomy from L2-L4. Bone Marrow: Marrow is of normal overall signal. No acute vertebral body compression fractures. Spinal Cord: Conus medullaris terminates at the L1 level. Visualized cord demonstrates normal signal and size. Paraspinous Soft Tissues: No paravertebral masses. T12-L1: Mild disc desiccation. Mild facet ligamentum flavum hypertrophy. No canal stenosis. No foraminal stenosis. Findings are unchanged when compared with the MRI dated March 20, 2019. L1-L2: Moderate disc desiccation and height loss. Trace retrolisthesis. No canal stenosis. Mild facet ligamentum flavum hypertrophy. No foraminal stenosis. Findings are unchanged. L2-L3: Status post posterior fixation and discectomy. No canal stenosis. No foraminal stenosis. L3-L4: Status post fixation and discectomy. No canal stenosis. Mild right and moderate left foraminal stenosis. These findings are similar to the prior study. L4-L5: There is epidural lipomatosis which appears increased in extent when compared with the MRI dated March 20, 2019. Severe disc desiccation and height loss with probable vacuum disc phenomenon which is new when compared with the prior study. Severe facet ligamentum flavum hypertrophy. There is severe canal stenosis which is increased from the prior study. Moderate right and mild left foraminal narrowing. L5-S1: Moderate facet ligamentum flavum hypertrophy. No canal stenosis. Mild bilateral foraminal stenosis. Findings are unchanged. IMPRESSION: 1. Interval posterior fixation and discectomy from L2-L4. 2. Increased epidural lipomatosis at L4-5 with increased narrowing of the thecal sac secondary to extrinsic compression. 3. Increased disc desiccation, height loss and vacuum disc phenomenon at L4-5. 4. No change in foraminal stenosis most severe on the right at L4-5 where it is moderate in degree and on the left at L3-4 where it is moderate in degree. Dictated by: Lovely Woodruff M.D. on 05/25/2023 at 11:44 Approved by: Lovely Woodruff M.D. on 05/25/2023 at 11:50
== END ==
PROVIDERS: Family Provider Internal Medicine; PCP Internal Medicine; Referring Provider Orthopaedic Surgery Orthopaedic Surgery of the Spine; Visit Provider Orthopaedic Surgery Orthopaedic Surgery of the Spine
DX: M48.062 Spinal stenosis, lumbar region with neurogenic claudication (principal)
CPT/HCPCS: 72148